=== PATIENT | female | born 1990 | race African-American/Black ===

== ENCOUNTER 2020-01-09 14:48 | Emergency (ER) | payer BC ==
[2020-01-09 15:36] LABS: APPEARANCE,URINE SLIGHTLY-CLOUDY; BILIRUBIN,URINE NEGATIVE (NEGATIVE); COLOR,URINE YELLOW; GLUCOSE, URINE NEGATIVE (NEGATIVE); KETONES,URINE NEGATIVE (NEGATIVE); LEUKOCYTE ESTERASE,URINE TRACE (NEGATIVE); NITRITE,URINE NEGATIVE (NEGATIVE); PROTEIN,URINE NEGATIVE (NEGATIVE); URINE SPECIFIC GRAVITY 1.031; UROBILINOGEN,URINE NEGATIVE mg/dL (<2.0)
--- NOTE | 2020-01-09 15:47 | ER Document Report ---
ED GI/ - General Chief Complaint: Abdominal Pain Stated Complaint: FEVER, DIARRHEA Time Seen by Provider: 01/09/20 15:18 Primary Care Provider: NATACHA RAMIREZ DO [NO LOCAL MD] - Follow up as needed Notes: Patient is a 29-year-old female who presents emergency department with a chief complaint of abdominal pain. Patient reports waking up with suprapubic abdominal pain this morning. Patient reports that she had similar pain 2 weeks ago. Patient reports 2 weeks ago she was negative for COVID. Patient denies ur inary symptoms. Patient denies vaginal bleeding or discharge. Patient reports her last menstrual cycle was at the end of November, about 1 month ago. Patient reports since yesterday she has had 2 episodes of [id number] diarrhea, without blood. Patient denies recent travel. Patient denies sick contacts. Patient reports her temperature was 99.8 at work this morning was sent home by her employer. Patient denies concern for sexually transmitted disease. - Related Data Allergies/Adverse Reactions: No Known Allergies Allergy (Unverified 01/09/20 15:12) Past Medical History - General Information source: Patient - Social History Smoking Status: Unknown if Ever Smoked Lives with: Family Family History: None Patient has homicidal ideation: No - Past Medical History Cardiac Medical History: Reports: None Pulmonary Medical History: Reports: None EENT Medical History: Reports: None Neurological Medical History: Reports: None Endocrine Medical History: Reports: None Renal/ Medical History: Reports: None Malignancy Medical History: Reports: None GI Medical History: Reports: None Musculoskeletal Medical History: Reports None Skin Medical History: Reports None Psychiatric Medical History: Reports: None Traumatic Medical History: Reports: None Infectious Medical History: Reports: None Surgical Hx: Negative Review of Systems - Review of Systems Constitutional: No symptoms reported EENT: No symptoms reported Cardiovascular: No symptoms reported Respiratory: No symptoms reported Gastrointestinal: See HPI Genitourinary: No symptoms reported Female Genitourinary: See HPI Musculoskeletal: No symptoms reported Skin: No symptoms reported Hematologic/Lymphatic: No symptoms reported Neurological/Psychological: No symptoms reported Physical Exam - Vital signs Vitals: Temp Pulse Resp BP Pulse Ox 98.6 F 79 18 120/74 100 01/09/20 15:14 01/09/20 15:14 01/09/20 15:14 01/09/20 15:14 01/09/20 15:14 Interpretation: Normal - Notes Notes: GENERAL: Well-appearing, well-nourished and in no acute distress. HEAD: Atraumatic, normocephalic. EYES: Pupils equal round and reactive to light, extraocular movements intact, sclera anicteric, conjunctiva are normal. ENT: Nares patent, oropharynx clear without exudates. Moist mucous membranes. NECK: Normal range of motion, supple without lymphadenopathy or JVD. LUNGS: Breath sounds clear to auscultation bilaterally and equal. No wheezes rales or rhonchi. HEART: Regular rate and rhythm without murmurs, rubs or gallops. ABDOMEN: Soft, suprapubic pain with palpation, normoactive bowel sounds. No guarding, no rebound. No masses appreciated. BACK: No cervical, thoracic, lumbar midline tenderness. No saddle anesthesia, normal distal neurovascular exam. No CVA tenderness. GENITOURINARY: Deferred. EXTREMITIES: Normal range of motion, no pitting or edema. No clubbing or cyano sis. NEUROLOGICAL: Cranial nerves II through XII grossly intact. Normal speech, normal gait. PSYCH: Normal mood, normal affect. SKIN: Warm, Dry, normal turgor, no rashes or lesions noted. Course - Re-evaluation Re-evalutation: 01/09/20 15:50 Patient nontoxic-appearing. Will order a urinalysis, urine hCG, and basic labs. Patient reports she is only had 2 episodes of diarrhea in the past 24 hours. She states that she had a temperature of 99.8 this morning was sent home by her employer. Patient reports 2 weeks ago she was tested for COVID which was negative, at that time she was having sore throat, nasal drainage and some diarrhea. Patient states that her symptoms improved. Patient's not currently having a sore throat or nasal drainage. 01/09/20 16:50 Upon reevaluation patient reports that 2 weeks ago when she was having the suprapubic lower abdominal pain she was also having a lot of diarrhea. She states that her symptoms did improve. She states they were not exacerbated by food. Denies sick contacts. Patient states this morning the symptoms started again and seems to be associated with her gastrointestinal system. Patient once again states she is not concerned for STD. Patient is nontoxic-appearing and resting comfortably on stretcher. We will provided the patient with Bentyl as well as Zofran. Take medications as prescribed and as needed. I did discuss strict return precautions with the patient to include severe abdominal pain, change or worsening pain, high fevers, urinary symptoms or any new or worsening symptoms. - Vital Signs Vital signs: Temp Pulse Resp BP Pulse Ox 98.6 F 79 18 120/74 100 01/09/20 15:15 01/09/20 15:14 01/09/20 15:14 01/09/20 15:14 01/09/20 15:14 - Laboratory Result Diagrams: 01/09/20 15:32 01/09/20 15:32 Laboratory results interpreted by me: 01/09/20 01/09/20 01/09/20 15:15 15:32 15:32 Plt Count 139 L Sodium 136.6 L Urine Blood SMALL H Ur Leukocyte Esterase TRACE H 01/09/20 16:51 Patient has no leukocytosis or anemia. Patient does not have a significant alteration in electrolytes or kidney function. Patient has trace amount of leuks and 4 WBCs with squamous epithelial cells. A urine culture has been ordered. Laboratory 01/09/20 01/09/20 01/09/20 15:15 15:32 15:32 WBC 6.3 RBC 4.26 Hgb 13.5 Hct 40.0 MCV 94 MCH 31.7 MCHC 33.8 RDW 13.5 Plt Count 139 L Lymph % (Auto) 26.3 [place] % (Auto) 8.7 Eos % (Auto) 2.3 Baso % (Auto) 0.3 Absolute Neuts (auto) 3.9 Absolute Lymphs (auto) 1.6 Absolute Monos (auto) 0.5 Absolute Eos (auto) 0.1 Absolute Basos (auto) 0.0 Seg Neutrophils % 62.4 Sodium 136.6 L Potassium 4.0 Chloride 106 Carbon Dioxide 25 Anion Gap 6 BUN 19 Creatinine 0.82 Est GFR ( Amer) > 60 Est GFR (MDRD) Non-Af > 60 Glucose 96 Calcium 9.6 Total Bilirubin 0.6 Direct Bilirubin 0.0 Neonat Total Bilirubin Not Reportable Neonat Direct Bilirubin Not Reportable Neonat Indirect Bili Not Reportable AST 20 ALT 11 Alkaline Phosphatase 38 Total Protein 7.6 Albumin 4.4 Urine Color YELLOW Urine Appearance SLIGHTLY-CLOUDY Urine pH 5.0 Ur Specific [place] 1.031 Urine Protein NEGATIVE Urine Glucose (UA) NEGATIVE Urine Ketones NEGATIVE Urine Blood SMALL H Urine Nitrite NEGATIVE Urine Bilirubin NEGATIVE Urine Urobilinogen NEGATIVE Ur Leukocyte Esterase TRACE H Urine WBC (Auto) 4 Urine RBC (Auto) 7 Urine Bacteria (Auto) TRACE Squamous Epi Cells Auto 8 Urine Mucus (Auto) MANY Urine Ascorbic Acid NEGATIVE Urine HCG, Qual NEGATIVE Discharge - Discharge Clinical Impression: Suprapubic abdominal pain Diarrhea Qualifiers: Diarrhea type: unspecified type Qualified Code(s): R19.7 - Diarrhea, unspecified Condition: Stable Disposition: HOME, SELF-CARE Additional Instructions: *Today using the emergency department for suprapubic abdominal pain. Your lab work and urinalysis are reassuring and do not show current signs of infection. Your suprapubic pain could be related to the diarrhea and gastrointestinal irritation. I will prescribe you Bentyl which is for abdominal cramping as well as nausea medication. Please rest over the next few days. Eat a bland diet, such as the brat diet which is bananas, rice, applesauce and toast. Avoid spicy or acidic foods. Please return the emergency department if symptoms worsen or change. Abdominal Pain There are many causes of abdominal pain. Pain can mean a serious problem requiring surgery (such as appendicitis). It can also be an innocent problem that goes away on its own (such as a viral infection). Often, time must pass to determine the cause of pain. The physician does not feel that hospitalization is necessary, at present. Things may change within the next 24 hours. Call the doctor or come back for re- examination if any problems occur, such as: (1) Pain that becomes more severe, steady, or becomes concentrated in one specific area. Also, pain that is more severe with movement or coughing. (2) Vomiting that persists or becomes more frequent. (3) Blood in the vomitus, urine, or bowel movements. Blood in the stool may have a tarry or black appearance. (4) Shaking chills or fever greater than 100 degrees F. (5) The abdomen becomes more distended or swollen. (6) Bowel movements cease. (7) Failure to improve as expected. Diarrhea Diarrhea means frequent, watery stools. There are many causes. Any problem that keeps the intestinal tract from absorbing water from the stool can lead to diarrhea. A sudden new diarrhea problem is usually caused by a virus, food sensitivity, toxic bacteria, or drugs. In this case, we expect the problem to go away soon. Testing is done only if you seem seriously ill from the diarrhea. If you have chronic diarrhea, or diarrhea that keeps coming back, we need to find out why. Chronic diarrhea can be due to inflammation of the bowels such as Crohn's disease or ulcerative colitis, food sensitivity such as intolerance to lactose or wheat protein, irritable bowel syndrome, and other problems. If your diarrhea is a significant problem but it's not clear why you have it, we'll refer you to a specialist for further testing. During an episode of diarrhea, drink small amounts (two to six ounces) of clear liquids (soft drinks, sport drinks, herb teas, broth, etc). Take fluids frequently to prevent dehydration. It's usually not a problem to take mild anti- diarrhea medication such as Kaopectate or Pepto-Bismol. As the diarrhea eases, advance to small amounts of bland food (mashed potato, toast) for 24 hours. Call the physician if blood appears in your vomit or stool, if vomiting lasts longer than 24 hours, if the abdominal pain worsens or becomes localized to one area, if you develop high fever, or if you become lightheaded and weak. Prescriptions: Dicyclomine HCl [Bentyl 20 mg Tablet] 20 mg PO QID PRN #20 tablet PRN Reason: Ondansetron [Zofran Odt 4 mg Tablet] 1 tab PO Q4H PRN #15 tab.rapdis PRN Reason: For Nausea/Vomiting Forms: Return to Work Referrals: NATACHA RAMIREZ DO [NO LOCAL MD] - Follow up as needed
[2020-01-09 16:02] LABS: ABSOLUTE EOSINOPHILS # (AUTO) 0.1 10^3/uL (0.0-0.6); ABSOLUTE LYMPHOCYTES (AUTO) 1.6 10^3/uL (0.5-4.7); ABSOLUTE MONOCYTES (AUTO) 0.5 10^3/uL (0.1-1.4); ABSOLUTE NEUT (AUTO) 3.9 10^3/uL (1.7-8.2); BASOPHILS % (AUTO) 0.3 % (0-2); EOSINOPHILS % (AUTO) 2.3 % (0-6); HEMOGLOBIN 13.5 g/dL (12.0-15.5); LYMPHOCYTES % (AUTO) 26.3 % (13-45); MEAN CORPUSCULAR HEMOGLOBIN 31.7 pg (27.0-33.4); MEAN CORPUSCULAR HGB CONC 33.8 g/dL (32.0-36.0); MEAN CORPUSCULAR VOLUME 94 fl (80-97); MONOCYTES % (AUTO) 8.7 % (3-13); PLATELET COUNT 139 10^3/uL (150-450); RED BLOOD COUNT 4.26 10^6/uL (3.72-5.28); RED CELL DISTRIBUTION WIDTH 13.5 % (11.5-14.0); SEGMENTED NEUTROPHILS % (AUTO) 62.4 % (42-78); TOTAL CELLS COUNTED % (AUTO) 100 %; WHITE BLOOD COUNT 6.3 10^3/uL (4.0-10.5)
[2020-01-09 16:24] LABS: ALBUMIN 4.4 g/dL (3.5-5.0); ALKALINE PHOSPHATASE 38 U/L (38-126); ANION GAP 6 (5-19); ASPARTATE AMINO TRANSFERASE 20 U/L (14-36); BILIRUBIN,TOTAL 0.6 mg/dL (0.2-1.3); BLOOD UREA NITROGEN 19 mg/dL (7-20); CALCIUM 9.6 mg/dL (8.4-10.2); CARBON DIOXIDE 25 mmol/L (22-30); CHLORIDE 106 mmol/L (98-107); GLUCOSE 96 mg/dL (75-110); TOTAL PROTEIN 7.6 g/dL (6.3-8.2)
[2020-01-09 17:58] VITALS: BP 111/69
== END 2020-01-09 17:58 | disposition home or self-care (01) ==
LOC: ER 14:48
DX: R19.7 Diarrhea, unspecified (principal); R10.30 Lower abdominal pain, unspecified; R50.9 Fever, unspecified
CPT/HCPCS: 36415; 80053; 81001; 81025; 85025; 87086; 99284